=== PATIENT | female | born 1990 | race Two or more races ===

== ENCOUNTER 2019-08-11 16:34 | Emergency (ER) | payer MEDICAID ==
[~2019-08-11] VITALS: Ht 162.6 cm; Wt 79.8 kg
[2019-08-11 17:52] LABS: Basophils # (auto) 0.1 uL; Basophils % (auto) 0.6 % (0.0-2.0); Eosinophils # (auto) 0.3 uL; Eosinophils % (auto) 3.4 % (0.0-7.0); Hematocrit 42.4 % (36.0-46.0); Hemoglobin 14.1 g/dL (12.2-16.2); Lymphocytes # (auto) 2.6 uL; Lymphocytes % (auto) 27.8 % (10.0-50.0); Mean Corpuscular Hemoglobin 29.5 pg (28.0-32.0); Mean Corpuscular Hgb Conc. 33.2 g/dL (32.0-36.0); Mean Corpuscular Volume 88.9 fL (80.0-100.0); Monocytes # (auto) 0.5 uL; Monocytes % (auto) 5.6 % (0.0-12.0); Neutrophils # (auto) 5.8 uL; Neutrophils % (auto) 62.6 % (37.0-80.0); Nucleated Red Blood Cells % 0.1 %; Platelet Count (auto) 280 10^3/uL (140-450); Red Blood Cells 4.77 10^6/uL (4.0-5.20); Red Cell Distribution Width 13.8 % (11.8-14.3); White Blood Cell 9.2 10^3/uL (4.4-10.8)
[2019-08-11 21:30] VITALS: BP 155/92
== END 2019-08-11 23:43 | disposition home or self-care (01) ==
LOC: ER 16:34
DX: O20.0 Threatened abortion (principal); Z3A.01 Less than 8 weeks gestation of pregnancy
CPT/HCPCS: 36415; 76801; 84702; 85025

== ENCOUNTER 2019-08-13 08:27 | Emergency (ER) | payer MEDICAID ==
[~2019-08-13] VITALS: Ht 162.6 cm; Wt 80.7 kg
[2019-08-13] MEDS ORDERED: RHO (D) IMMUNE GLOBULIN 300 MCG INJ IM ONE (14:00)
[2019-08-13 16:57] VITALS: BP 126/84
== END 2019-08-13 17:11 | disposition home or self-care (01) ==
LOC: ER 08:27
DX: O20.0 Threatened abortion (principal); Z29.13 Encounter for prophylactic Rho(D) immune globulin; Z3A.00 Weeks of gestation of pregnancy not specified
CPT/HCPCS: 36415; 36430; 76801; 84702; 86850; 86900; 86901; 90384; 96372